=== PATIENT | female | born 1980 | race Caucasian/White ===

== ENCOUNTER 2019-06-24 07:14 | Day surgery (SDC) | payer BC ==
[2019-06-24] VITALS (9 sets, daily range): BP systolic 90–129; BP diastolic 50–93; PULSE 73–93; TEMP 97.9–100.5
[~2019-06-24] VITALS: Ht 165.1 cm; Wt 110.0 kg
[2019-06-24] MEDS ORDERED: MOTRIN 600600 MG/TAB PO (11:53)
[2019-06-24] MEDS ORDERED: NORCO 325 MG-51 TAB PO (11:53)
--- NOTE | 2019-06-24 12:00 | NUR ---
Patient returns to room 6 per cart from PACU accompanied by Mouna VALIENTE. Patient is awake and alert. Cm set x4 on abdomen dry over incisional sites. IV fluids infusing and site is free of redness. Denies pain or nausea. Temp 99.6 and room air sats 98%. Denies pain or nausea. Mother in room.
--- NOTE | 2019-06-24 12:15 | NUR ---
Resting and sipping on Sprite.
--- NOTE | 2019-06-24 12:30 | NUR ---
Temp 98.8 and room air sats 98%. Resting and tolerates sips of Sprite.
--- NOTE | 2019-06-24 12:45 | NUR ---
Resting and sips on Sprite.
--- NOTE | 2019-06-24 13:00 | NUR ---
Eating few bites of muffin. Temp 98.8. States that she is having increasing abdominal soreness.
--- NOTE | 2019-06-24 13:17 | NUR ---
[place] 5mg one tab for pain at 7-8. Continues to eat muffin and sip on Sprite.
--- NOTE | 2019-06-24 13:30 | NUR ---
Continues to rest and sip on Sprite and eat muffin.
--- NOTE | 2019-06-24 14:00 | NUR ---
Resting and talking with mother. Less pain. Tolerated muffin and sprite.
--- NOTE | 2019-06-24 14:10 | NUR ---
Assisted up to the bathroom and is able to void and returns to room. Complains of abdominal discomfort with movement.
--- NOTE | 2019-06-24 14:20 | NUR ---
Sitting on edge of cart talking with mother.
--- NOTE | 2019-06-24 14:46 | NUR ---
Motrin 600mg po given for abdominal soreness. Continues to sit up on the edge of the cart. Eating crackers and sipping on Sprite.
--- NOTE | 2019-06-24 14:54 | NUR ---
Motrin 600mg po script called to [facility] per patient request. Will hand carry script for [place].
--- NOTE | 2019-06-24 15:25 | NUR ---
Patient is dressed and IV discontinued. Given dismissal instructions and voices understanding of these. Provided script for [place] 5 mg and instructed to get over the counter laxative.
--- NOTE | 2019-06-24 15:30 | NUR ---
Patient dismissed to home driven by mother and taken to the front door per wheelchair and assisted into car by this RN. Dismissal instructions in hand.
== END 2019-06-24 15:30 | disposition home or self-care (01) ==
LOC: SDCO 07:14
DX: K43.9 Ventral hernia without obstruction or gangrene (principal); K42.9 Umbilical hernia without obstruction or gangrene; Z88.0 Allergy status to penicillin; Z88.2 Allergy status to sulfonamides
CPT/HCPCS: C1781; J0690; J1100; J1885; J2405; J2704; J3010; J7120